=== PATIENT | female | born 1990 | race Caucasian/White ===

== ENCOUNTER → 2018-10-26 11:44 | Outpatient (CLI) | payer OTHER, SELFPAY ==
[2018-10-29 14:46] LABS: HPV Reflexed? NOT INDICATED
== END ==
PROVIDERS: Visit Provider Obstetrics & Gynecology
DX: Z12.4 Encounter for screening for malignant neoplasm of cervix (principal)
CPT/HCPCS: 87624; 88175; G0145

== ENCOUNTER → 2019-11-08 11:25 | Outpatient (CLI) | payer OTHER, SELFPAY ==
[2019-11-08 14:34] LABS: Progesterone Level 8.26 ng/mL (See Comment)
== END ==
PROVIDERS: Visit Provider Obstetrics & Gynecology
DX: E28.8 Other ovarian dysfunction (principal)
CPT/HCPCS: 36415; 84144

== ENCOUNTER → 2019-11-17 08:43 | Outpatient (CLI) | payer OTHER, SELFPAY ==
[2019-11-17 11:08] LABS: T3 Total - Triiodothyronine 1.24 ng/mL (0.6-1.81); Vitamin D,25 Hydroxy 47.2 ng/mL
[2019-11-17 11:16] LABS: Follicle Stimulating Hormone 5.7 mIU/mL; Luteinizing Hormone 9.1 mIU/mL; T4 Free Direct 0.94 ng/dL (0.76-1.46); Thyroid Stim Hormone (TSH) 6.79 uIU/mL (0.358-3.74)
[2019-11-21 07:39] LABS: 17-Hydroxyprogesterone 40 ng/dL (.)
[2019-11-25 14:56] LABS: Androstenedione 120 ng/dL (41-262); Sex Hormone-binding Globulin 58.3 nmol/L (24.6-122.0)
== END ==
PROVIDERS: Visit Provider Obstetrics & Gynecology
DX: E28.8 Other ovarian dysfunction (principal); Z13.89 Encounter for screening for other disorder
CPT/HCPCS: 36415; 82157; 82306; 82533; 82627; 82670; 83001; 83002; 83498; 84146; 84270; 84403; 84439; 84443; 84480; 84481; 82626

== ENCOUNTER → 2020-01-24 08:57 | Outpatient (CLI) | payer OTHER, SELFPAY ==
[2020-01-24 12:01] LABS: Free T3 2.7 pg/mL (2.18-3.98); Prolactin 28.7 ng/mL; T4 Free Direct 1.17 ng/dL (0.76-1.46); Thyroid Stim Hormone (TSH) 3.93 uIU/mL (0.358-3.74)
[2020-01-24 17:41] LABS: Progesterone Level 18.37 ng/mL (See Comment); T3 Total - Triiodothyronine 1.07 ng/mL (0.6-1.81)
[2020-01-25 15:47] LABS: Thyroglobulin Antibody 4.8 IU/mL (0.0-0.9); Thyroid Peroxidase AB 324 IU/mL (0-34)
[2020-01-28 17:36] LABS: hCG Titer Quant., Serum 13783 mIU/mL (1-3)
== END ==
PROVIDERS: Visit Provider Obstetrics & Gynecology
DX: Z13.89 Encounter for screening for other disorder (principal); E28.8 Other ovarian dysfunction
CPT/HCPCS: 36415; 84144; 84146; 84439; 84443; 84480; 84481; 84702; 86376; 86800

== ENCOUNTER → 2020-02-01 12:37 | Outpatient (CLI) | payer OTHER, SELFPAY ==
[2020-02-01 13:54] LABS: Absolute Lymphocyte Count 2.27 X10^3/uL (0.83-4.51); Absolute Neutrophil Count 6.8 X10^3/uL (2.0-7.7); Basophil# 0.03 X10^3/uL; Basophil% 0.3 % (0-1); Eosinophil# 0.08 X10^3/uL; Eosinophils% 0.8 % (0-5); Hematocrit 40.7 % (37-47); Hemoglobin 14.3 g/dL (12.0-15.0); Lymphocyte # 2.27 X10^3/ul (4.0); Lymphocyte % 22.6 % (19-41); Mean Corp Hgb Conc 35.1 g/dL (32-36); Mean Corpuscular Hgb 30.8 pg (27.0-32.0); Mean Corpuscular Volume 87.7 fL (81-99); Mean Platelet Vol. 10.3 fl (6.2-12.0); Monocyte# 0.85 X10^3/uL; Monocyte% 8.5 % (0-10); NRBC Flagged by Analyzer 0 % (0-5); Neutrophil # 6.79 X10^3/uL (2.7-7.7); Neutrophil % 67.5 % (47-70); Platelet Count 231 K/mm3 (150-450); RBC Distribution Width SD 38.5 fl (35.1-43.9); Red Blood Count 4.64 M/mm3 (4.2-5.4); White Blood Count 10.1 K/mm3 (4.4-11.0)
[2020-02-01 13:58] LABS: Color, Urine Yellow (Yellow); Glucose, Dipstick Normal (Normal); Ketone-Dipstick Negative (Negative); Leukocyte Esterase-Dipstick 500 /ul (Negative); Nitrite-Dipstick Negative (Negative); Occult Blood-Urine Negative /ul (Negative); Protein-Dipstick Negative (Negative); Specific Gravity, Urine 1.015 (1.002-1.030); Urine Bilirubin Dipstick Negative (Negative); Urine Clarity Clear (Clear); Urine Urobilinogen Normal (Normal); Urine pH 6.5 (5.0 - 8.0)
[2020-02-01 14:08] LABS: Amphetamine Urine VISTA NEGATIVE (<1000 ng/mL); Barbiturate Urine VISTA NEGATIVE (< 200 ng/mL); Benzodiazepine Urine VISTA NEGATIVE (< 200 ng/mL); Cocaine Urine VISTA NEGATIVE (< 300 ng/mL); Ecstacy Urine VISTA NEGATIVE (< 500 ng/mL); Methadone Urine VISTA NEGATIVE (< 300 ng/mL); PCP Urine VISTA NEGATIVE (< 25 ng/mL); THC Urine VISTA NEGATIVE (< 50 ng/mL); Vista UDS pH Range 6
[2020-02-01 15:33] LABS: HIV - WCH Non-Reactive (Nonreactive); Hepatitis B Surface Antigen Non-Reactive (Nonreactive); Hepatitis C Antibody Non-Reactive (Nonreactive); Rubella IgG Reactive (Nonreactive); Vitamin D,25 Hydroxy 39.3 ng/mL
[2020-02-03 02:11] LABS: Prenatal RPR NONREACTIVE (NONREACTIVE)
[2020-02-03 08:09] LABS: Chlamydia By Nucleic Acid AMP Negative (Negative)
[2020-02-03 10:56] LABS: Gonococcus By Nucleic Acid AMP Negative (Negative)
== END ==
PROVIDERS: Visit Provider Obstetrics & Gynecology
DX: Z34.81 Encounter for supervision of other normal pregnancy, first trimester (principal)
CPT/HCPCS: 36415; 80307; 81002; 82306; 85025; 86703; 86762; 86803; 87340; 87491; 87591

== ENCOUNTER → 2020-03-28 10:55 | Outpatient (CLI) | payer OTHER, SELFPAY ==
[2020-03-28 14:01] LABS: Free T3 2.7 pg/mL (2.18-3.98); T4 Free Direct 1.25 ng/dL (0.76-1.46); Thyroid Stim Hormone (TSH) 1.15 uIU/mL (0.358-3.74)
[2020-04-04 14:11] LABS: CF, Screen Comment: (.)
== END ==
PROVIDERS: Visit Provider Obstetrics & Gynecology
DX: Z34.82 Encounter for supervision of other normal pregnancy, second trimester (principal); E03.9 Hypothyroidism, unspecified
CPT/HCPCS: 36415; 81220; 84439; 84443; 84481

== ENCOUNTER → 2020-06-27 15:02 | Outpatient (CLI) | payer OTHER, SELFPAY ==
[2020-06-27 16:46] LABS: Hematocrit 37.9 % (37-47); Hemoglobin 12.7 g/dL (12.0-15.0); Mean Corp Hgb Conc 33.5 g/dL (32-36); Mean Corpuscular Hgb 31.1 pg (27.0-32.0); Mean Corpuscular Volume 92.9 fL (81-99); Mean Platelet Vol. 10.4 fl (6.2-12.0); Platelet Count 202 K/mm3 (150-450); RBC Distribution Width CV 13.4 % (11.6-14.6); RBC Distribution Width SD 45.8 fl (35.1-43.9); Red Blood Count 4.08 M/mm3 (4.2-5.4)
[2020-06-27 17:23] LABS: Glucose Challenge Gest 1H 50g 124 mg/dL (70-140); T4 Free Direct 0.85 ng/dL (0.76-1.46); Thyroid Stim Hormone (TSH) 1.07 uIU/mL (0.358-3.74)
== END ==
PROVIDERS: Visit Provider Obstetrics & Gynecology
DX: Z34.82 Encounter for supervision of other normal pregnancy, second trimester (principal)
CPT/HCPCS: 36415; 82950; 84439; 84443; 85027

== ENCOUNTER → 2020-08-01 11:08 | Outpatient (CLI) | payer OTHER, SELFPAY ==
[2020-08-01 16:12] LABS: T4 Free Direct 0.93 ng/dL (0.76-1.46)
== END ==
PROVIDERS: PCP Family Medicine; Visit Provider Student in an Organized Health Care Education/Training Program
DX: E03.9 Hypothyroidism, unspecified (principal)
CPT/HCPCS: 36415; 84439; 84443

== ENCOUNTER → 2020-08-15 09:56 | Outpatient (CLI) | payer OTHER, SELFPAY ==
[2020-08-15 10:46] LABS: Hematocrit 41.2 % (37-47); Hemoglobin 13.8 g/dL (12.0-15.0); Mean Corp Hgb Conc 33.5 g/dL (32-36); Mean Corpuscular Hgb 31.3 pg (27.0-32.0); Mean Corpuscular Volume 93.4 fL (81-99); Mean Platelet Vol. 10.2 fl (6.2-12.0); Platelet Count 208 K/mm3 (150-450); RBC Distribution Width CV 13.8 % (11.6-14.6); RBC Distribution Width SD 47.2 fl (35.1-43.9); Red Blood Count 4.41 M/mm3 (4.2-5.4)
[2020-08-15 10:59] LABS: Protein, Urine (Random) 14.1 mg/dL (<11.9); Protein:Creat Ratio 358 mg/g CRE (0-200)
[2020-08-15 11:13] LABS: ALB/GLOB Ratio 0.7 RATIO (0.9-2.4); AST(SGOT) 15 U/L (15-37); Alanine Aminotransfer ALT/SGPT 20 U/L (13-56); Albumin, Serum 2.5 g/dL (3.2-5.0); Alkaline Phosphatase 91 U/L (45-117); Anion Gap 6 (5-15); BUN 7 mg/dL (7-18); BUN/Creat Ratio 9.8 RATIO (10-20); Chloride 110 mmol/L (98-107); Creatinine, Serum 0.71 mg/dL (0.55-1.02); EST Glomerular Filtration Rate 103 mL/min (>60); Est Glom Filt Rate - Afr Amer 124 mL/min (>60); Globulin 3.8 g/dL (2.2-4.2); Glucose 81 mg/dL (74-106); Potassium 3.4 mmol/L (3.5-5.1); Protein, Total 6.3 g/dL (6.4-8.2); Sodium Level 139 mmol/L (136-145); Uric Acid 5.2 mg/dL (2.6-6.0)
== END ==
PROVIDERS: PCP Family Medicine; Visit Provider Obstetrics & Gynecology
DX: O13.3 Gestational [pregnancy-induced] hypertension without significant proteinuria, third trimester (principal); Z3A.00 Weeks of gestation of pregnancy not specified
CPT/HCPCS: 36415; 80053; 82570; 84156; 84550; 85027

== ENCOUNTER → 2020-08-25 12:01 | Outpatient (CLI) | payer OTHER, SELFPAY | PROVIDERS: PCP Family Medicine; Visit Provider Obstetrics & Gynecology | DX: Z36.85 Encounter for antenatal screening for Streptococcus B (principal) | CPT/HCPCS: 87081 ==

== ENCOUNTER → 2020-09-05 10:30 | Outpatient (CLI) | payer OTHER, SELFPAY ==
[2020-09-05 10:58] LABS: Hematocrit 42.9 % (37-47); Hemoglobin 14.8 g/dL (12.0-15.0); Mean Corp Hgb Conc 34.5 g/dL (32-36); Mean Corpuscular Hgb 31.4 pg (27.0-32.0); Mean Corpuscular Volume 91.1 fL (81-99); Mean Platelet Vol. 10.3 fl (6.2-12.0); Platelet Count 225 K/mm3 (150-450); RBC Distribution Width CV 13.3 % (11.6-14.6); RBC Distribution Width SD 44.2 fl (35.1-43.9); Red Blood Count 4.71 M/mm3 (4.2-5.4)
[2020-09-05 11:11] LABS: Protein, Urine (Random) 32.5 mg/dL (<11.9); Protein:Creat Ratio 349 mg/g CRE (0-200)
[2020-09-05 11:22] LABS: ALB/GLOB Ratio 0.6 RATIO (0.9-2.4); AST(SGOT) 18 U/L (15-37); Alanine Aminotransfer ALT/SGPT 21 U/L (13-56); Albumin, Serum 2.6 g/dL (3.2-5.0); Alkaline Phosphatase 123 U/L (45-117); Anion Gap 9 (5-15); BUN 11 mg/dL (7-18); BUN/Creat Ratio 13.6 RATIO (10-20); Calcium,Total 9.3 mg/dL (8.5-10.1); Chloride 109 mmol/L (98-107); Creatinine, Serum 0.81 mg/dL (0.55-1.02); EST Glomerular Filtration Rate 88 mL/min (>60); Est Glom Filt Rate - Afr Amer 107 mL/min (>60); Globulin 4.3 g/dL (2.2-4.2); Glucose 93 mg/dL (74-106); LDH 180 U/L (84-246); Potassium 3.7 mmol/L (3.5-5.1); Protein, Total 6.9 g/dL (6.4-8.2); Sodium Level 139 mmol/L (136-145); Uric Acid 5.9 mg/dL (2.6-6.0)
== END ==
PROVIDERS: PCP Family Medicine; Visit Provider Obstetrics & Gynecology
DX: O13.9 Gestational [pregnancy-induced] hypertension without significant proteinuria, unspecified trimester (principal); Z3A.00 Weeks of gestation of pregnancy not specified
CPT/HCPCS: 36415; 80053; 82570; 83615; 84156; 84550; 85027

== ENCOUNTER 2020-09-05 19:29 | Inpatient (IN) | payer OTHER, SELFPAY ==
[2020-09-05 19:36] VITALS: BMI 34.2
[2020-09-05 19:47] VITALS: BP 130/82; PULSE 86; TEMP 37; O2SAT 99
[2020-09-05] MEDS: Lactated Ringers 1,000 ML 50 ML IV (20:40)
[2020-09-05 20:51] LABS: Absolute Lymphocyte Count 2.08 X10^3/uL (0.83-4.51); Absolute Neutrophil Count 9.5 X10^3/uL (2.0-7.7); Basophil# 0.03 X10^3/uL; Basophil% 0.2 % (0-1); Eosinophil# 0.07 X10^3/uL; Eosinophils% 0.5 % (0-5); Hematocrit 42.4 % (37-47); Hemoglobin 14.4 g/dL (12.0-15.0); Lymphocyte # 2.08 X10^3/ul (0.83-4.51); Mean Corpuscular Hgb 31.3 pg (27.0-32.0); Mean Corpuscular Volume 92.2 fL (81-99); Mean Platelet Vol. 10.4 fl (6.2-12.0); Monocyte# 1.21 X10^3/uL; Monocyte% 9.3 % (0-10); NRBC Flagged by Analyzer 0 % (0-5); Neutrophil # 9.54 X10^3/uL (2.7-7.7); Neutrophil % 73.5 % (47-70); Platelet Count 250 K/mm3 (150-450); RBC Distribution Width CV 13.2 % (11.6-14.6); RBC Distribution Width SD 44.6 fl (35.1-43.9)
[2020-09-05] MEDS: miSOPROStol 25 MCG TABLET PO (21:00)
[2020-09-05 21:22] VITALS: BP 118/58; PULSE 80; TEMP 37; O2SAT 99
[2020-09-05 22:41] VITALS: BP 132/59; PULSE 91; TEMP 37.3; O2SAT 98
[2020-09-06] VITALS (74 sets, daily range): BP systolic 92–145; BP diastolic 43–94; PULSE 69–126; TEMP 36.6–38.3; O2SAT 92–100
[2020-09-06] MEDS: miSOPROStol 50 MCG TABLET PO (01:08)
[2020-09-06] MEDS: Lactated Ringers 1,000 ML 100 ML IV (04:28)
--- NOTE | 2020-09-06 06:26 | PN.OBGYN_ITS ---
Subjective Subjective Reports mild contractions. No headache or vision changes. Objective Data Objective Data Vital Signs: Vital Signs Temp Pulse BP Pulse Ox 97.9 F 69 113/55 L 98 09/06/20 05:25 09/06/20 05:26 09/06/20 05:26 09/06/20 05:25 Weight: 87.713 kg Body Mass Index (BMI) 34.2 Intake & Output: Intake and Output for Last 24 Hours 09/04/20 09/05/20 09/06/20 23:59 23:59 23:59 Intake Total 1553.34 / 1553.34 Output Total 50 / 50 250 / 250 Balance -50 / -50 1303.34 / 1303.34 Lab / Micro Data Result Diagrams: 09/05/20 20:40 Labs: Laboratory Results - last 24 hr 09/05/20 09/05/20 20:40 20:40 WBC 13.0 H RBC 4.60 Hgb 14.4 Hct 42.4 MCV 92.2 MCH 31.3 MCHC 34.0 RDW Std Deviation 44.6 H RDW Coeff of Jessie 13.2 Plt Count 250 MPV 10.4 Immature Gran % (Auto) 0.500 Neut % (Auto) 73.5 H Lymph % (Auto) 16.0 L [place] % (Auto) 9.3 Eos % (Auto) 0.5 Baso % (Auto) 0.2 Absolute Neuts (auto) 9.5 H Absolute Lymphs (auto) 2.08 Nucleated RBC % 0 Blood Type A POSITIVE Antibody Screen NEGATIVE Micro: Microbiology 09/05/20 20:00 Mucosa - Nose SARS-CoV-2 Antigen (Rapid) - Final Physical Exam Const alert, oriented x3 and no apparent distress Manual OB Exam: dilated 1.5\60\-3\soft\midposition NST FHR Rate Baby A Baseline: 130 Variability:: Moderate Accelerations:: 15 x 15 Decelerations:: None NST Reactive:: Yes FHR Category:: Category I Uterine Activity:: 07/08 Assessment & Plan (1) 37 weeks gestation of : (2) Preeclampsia: COMMENT: w/o severe features PLAN: Nunez catheter placed with 30 cc NS Category 1 heart rate tracing Maternal and status is reassuring
[2020-09-06] MEDS: 0.9% Normal Saline Single 100 ML IV.SOLN. INTRA-UTER (06:27)
[2020-09-06] MEDS: Lactated Ringers 500 ML 999 ML IV ×3 (07:15→21:17)
[2020-09-06] MEDS: fentaNYL-bupivacaine (epidural) 100 ML BAG EPIDURAL ×4 (08:14→21:54)
[2020-09-06] MEDS: Oxytocin 30 units/NS 500 ml 30 UNITS/500 ML IV.SOLN IV (08:28)
[2020-09-06] MEDS: Ondansetron 4 MG/2 ML Vial IV ×2 (10:10→16:42)
[2020-09-06] MEDS: Lactated Ringers 1,000 ML 200 ML IV ×3 (12:20→22:59)
[2020-09-06] MEDS: proCHLORPERazine 10 MG/2 ML Vial IV (20:24)
[2020-09-06] MEDS: DiphenhydrAMINE 50 MG/ML Syringe 25 MG IV (21:29)
[2020-09-07] VITALS (31 sets, daily range): BP systolic 95–123; BP diastolic 44–64; PULSE 66–100; RESP 14–22; TEMP 36.3–38.8; O2SAT 94–100
[2020-09-07] MEDS: Acetaminophen 650 MG/20 ML UDC PO (02:01)
[2020-09-07] MEDS: Sodium Citrate/Citric Acid 30 ML UDC PO (02:29)
[2020-09-07] MEDS: Cefazolin 2 GM in 0.9% Normal Saline 100 ML IV (02:32)
--- NOTE | 2020-09-07 02:43 | PCM.PN.OB ---
Subjective Subjective Patient has progressed to approximately 6 cm dilation with 80% effacement still -1 station. She has remained at this station dilation for at least 8 hours. heart tones have been alternating between category 1 category 2 with Pitocin up to 14 units. Now with fever up to approximately 101.8 ?F. Given this, along with no prospect of delivering soon, will proceed with primary section for failure to progress, chorioamnionitis, and increasing stress. I have discussed a section with the patient and her who desire that we proceed. We discussed the risks benefits and alternatives including the possibility of bleeding, infection, and injury to surrounding structures such as bowel and bladder. All questions were answered. Objective Data Objective Data Vital Signs: Vital Signs Temp Pulse Resp BP Pulse Ox 99.7 F H 95 22 H 105/52 L 99 09/07/20 02:25 09/07/20 02:25 09/07/20 02:25 09/07/20 02:25 09/07/20 02:25 Oxygen Delivery Method Room Air Weight: 193 lb 6 oz Body Mass Index (BMI) 34.2 Intake & Output: Intake and Output for Last 24 Hours 09/05/20 09/06/20 09/07/20 23:59 23:59 23:59 Intake Total 5966.82 / 5979.62 45.47 / 45.47 Output Total 50 / 50 2200 / 2200 650 / 650 Balance -50 / -50 3766.82 / 3779.62 -604.53 / -604.53 Lab / Micro Data Result Diagrams: 09/05/20 20:40 Micro: Microbiology 09/05/20 20:00 Mucosa - Nose SARS-CoV-2 Antigen (Rapid) - Final
--- NOTE | 2020-09-07 02:46 | EX.PCM.OBRPT ---
Maternal Data Information SLICK Calculator Estimated Delivery Date Method Current WG Current Estimate 09/22/20 LMP (Certain) 37w 6d Details Operative Information Date of Procedure: 09/07/20 Pre-Operative Diagnosis: -Induced Hypertension, Failure to Progress, Chorioamnionitis, Increasing Stress Post-Operative Diagnosis: -Induced Hypertension, Failure to Progress, Chorioamnionitis, Increasing Stress, Cephalopelvic Disproportion, Posterior Presentation Classification: TONE Procedure Type: low transverse long wall shear operator #1: Sujatha Orozco Type of Anesthesia: Spinal (With Duramorph) Anesthesiologist: Bernardo Varner Antibiotic Given: Ancef 2 grams IV x1 and Zithromax 500 mg/5 mL X1 Estimated Blood Loss: 750 cc Fluids Replaced: Crystalloid Findings Description of Procedure: Surgeon: Jose Alejandro Chavarria MD, FACOG Indication: This is a 29-year-old who presented to labor and delivery for induction approximately 2 days ago for -induced hypertension. She originally received Cytotec followed by a Nunez balloon catheter and cervix progressed to approximately 6 cm dilation with 80% effacement still -1 station. She has remained at this station dilation for at least 8 hours. heart tones have been alternating between category 1 category 2 with Pitocin up to 14 units. Now with fever up to approximately 101.8 ?F. Given this, along with no prospect of delivering soon, will proceed with primary section for failure to progress, chorioamnionitis, and increasing stress. care has otherwise been uneventful. The patient has been counseled regarding the risk and indications of this procedure including the possibility of bleeding infection and injury to surrounding structures such as bowel bladder. All questions were answered. Procedure: Patient was taken to the operating room where after spinal anesthesia was placed, the patient was prepped and draped in usual sterile fashion and a Nunez catheter was placed. The abdomen was entered through a Pfannenstiel incision and peritoneum was entered bluntly. After developing a bladder flap on the lower uterine segment a low transverse incision was made on the uterus and head was easily delivered onto the operative field the nose mouth and oropharynx were bulb suctioned. Subsequently a viable male infant was born with Apgars of 8/9 weighing 9 pounds 4 ounces in an occiput posterior presentation. The infant was noted to cry move all extremities vigorously on the operative field. The umbilical cord was doubly clamped and ligated and handed to the nursery personnel including Dr. Viveros who were present for the delivery. Placenta was delivered and noted to be 3 vessels and normal. Uterus was exteriorized and remaining placental tissue was removed. The uterus was then closed in 2 layers first with running locked 0 Vicryl suture followed by a second imbricating layer with 0 Vicryl suture. 0 Vicryl suture was then used in a horizontal mattress interrupted fashion to affect final hemostasis of the uterine incision line. Normal fallopian tubes and ovaries were visualized and the uterus was returned to the pelvis. Hemostasis was noted and rectus abdominis muscles were reapproximated in the midline with interrupted Number 0 Vicryl suture in a horizontal mattress fashion. Fascia was closed with running Number 1 PDS Strata fix suture. Subcutaneous tissue was irrigated with copious amouts of saline solution and then closed with running 3-0 Vicryl suture. Skin was closed with 4-0 monocryl suture in a running subcuticular fashion. Steri strips and a Mepilex dressing were placed across the incision. The patient tolerated the procedure well and was taken to the recovery room in satisfactory condition. Sponge, needle, and instrument counts were all reportedly correct. EBL was 500 cc. Ancef 2 gms IV and azithromycin 500 mg IV were given prior to the procedure. Presentation: Positive for Vertex (Occiput posterior) Amniotic Membrane Rupture Type: Spontaneous Amniotic Fluid Description: Clear Placenta Disposition: [facility] Specimen(s) Sent to Pathology: None Cord Vessel Description: 3 Vessels Cord Entanglement: None Infant A Gender: Male (1 minute): 8 (5 minute): 9 Complications Risks of Surgery Discussed w/Patient: Bleeding, Infection and Injury to surrounding structure(s) including bowel and bladder Complications: None Admit VTE Documentation VTE Present on Admission: Yes VTE Mechan Device Prophylaxis: SCD's VTE Pharm Prophylaxis Ordered: Yes
--- NOTE | 2020-09-07 02:55 | PCM.DC ---
Discharge Instructions Diet Discharge Diet: No restrictions Activity Discharge Activity: May Drive (if not taking narcotic pain medication), May Shower and May Take a Tub Bath May resume sexual activity in: 4-6 weeks Lifting Restrictions: 20-25 pounds for 6 weeks Dressing / Incision Call your doctor if your incision/area has: Continuous Slow Oozing, Sudden Increased Bleeding, Increased Pain/ Swelling, Increased Redness and Foul Smelling Discharge Call your doctor if you observe: Fever of 101 or Higher, Inability to urinate, Inability to have a bowel movement and Using more than 1 pad per hour Remove Dressing in: 1 week (remove outer dressing; leave steri strips on until they fall off--ok to shower or bath over dressings and pat dry) Follow Up Care Please Follow Up With: Radha Chakraborty MD When: Call [phone] for appointment to be seen in 2 weeks. Test Results: Test results from this visit will be discussed in further detail at your follow-up appointment, if applicable. Discharge Plan Admission Admit Date/Time: 09/05/20 19:29 Primary Reason for Your Visit: Delivery of Otis Attending Provider: Jose Alejandro Chavarria Primary Care Provider: Joseline Lopez Discharge Orders/Prescriptions Prescriptions: New docusate sodium 100 mg tablet 100 mg PO BID PRN (Reason: constipation) Qty: 60 RF: 1 oxycodone 5 mg capsule 5 mg PO Q6H PRN (Reason: pain) 7 Days Qty: 14 RF: 0 Continued PNV #[id number] acid-dha 35 mg iron-5 mg iron-1 mg Capsule 2 cap PO DAILY PRN RF: 0 thyroid 65 mg Tablet 75 mg PO DAILY RF: 0 Referrals / Follow Up: Joseline Lopez DO [Primary Care Provider] - Disposition Disposition (needs filled in before D/C Order can be placed): Home, self care
[2020-09-07] MEDS: Oxytocin 30 units/NS 500 ml 30 UNITS/500 ML IV.SOLN 167 UNITS IV (04:14)
[2020-09-07] MEDS: Ketorolac 30 MG/ML Syringe IV ×4 (04:48→22:53)
[2020-09-07] MEDS: Levothyroxine 75 MCG Tablet PO (06:37)
[2020-09-07] MEDS: Lactated Ringers 1,000 ML 100 ML IV ×2 (07:16→16:35)
[2020-09-07] MEDS: Acetaminophen 650 MG/20 ML UDC 1000 MG PO ×3 (08:11→22:51)
[2020-09-07] MEDS: Cefazolin 1 GM/50 ML BAG IV ×2 (10:41→18:15)
[2020-09-07] MEDS: 0.9% Saline Lock 10 ML Syringe IV (22:53)
[2020-09-08 01:17] VITALS: RESP 18; O2SAT 95
[2020-09-08 03:17] VITALS: O2SAT 95
[2020-09-08 04:05] VITALS: BP 101/49; PULSE 85; RESP 16; TEMP 36.4
[2020-09-08] MEDS: Acetaminophen 650 MG/20 ML UDC 1000 MG PO ×4 (04:56→23:53)
[2020-09-08] MEDS: Ketorolac 30 MG/ML Syringe IV (04:57)
[2020-09-08] MEDS: Levothyroxine 75 MCG Tablet PO (04:57)
[2020-09-08] MEDS: 0.9% Saline Lock 10 ML Syringe IV (04:57)
[2020-09-08 06:09] LABS: Hematocrit 30.2 % (37-47); Mean Corp Hgb Conc 33.1 g/dL (32-36); Mean Corpuscular Hgb 31.2 pg (27.0-32.0); Mean Corpuscular Volume 94.1 fL (81-99); Mean Platelet Vol. 10.2 fl (6.2-12.0); Platelet Count 179 K/mm3 (150-450); RBC Distribution Width CV 13.6 % (11.6-14.6); RBC Distribution Width SD 47.6 fl (35.1-43.9); Red Blood Count 3.21 M/mm3 (4.2-5.4); White Blood Count 18.8 K/mm3 (4.4-11.0)
[2020-09-08 08:00] VITALS: BP 105/50; PULSE 80; RESP 16; TEMP 36.1
--- NOTE | 2020-09-08 08:42 | PCM.PN.OB ---
Subjective Subjective Denies fevers, chills, vomiting, headache, vision changes, chest pain, shortness of breath. She reports some nausea due to decreased p.o. intake as she does not like hospital food. Denies heavy lochia. She is breast-feeding. Objective Data Objective Data Vital Signs: Vital Signs Temp Pulse Resp BP Pulse Ox 97.6 F L 85 16 101/49 L 95 09/08/20 04:05 09/08/20 04:05 09/08/20 04:05 09/08/20 04:05 09/08/20 03:17 Oxygen Delivery Method Room Air Weight: 87.713 kg Body Mass Index (BMI) 34.2 Intake & Output: Intake and Output for Last 24 Hours 09/06/20 09/07/20 09/08/20 23:59 23:59 23:59 Intake Total 5966.82 / 5979.62 2618.81 / 2618.81 833.33 / 833.33 Output Total 2200 / 2200 1390 / 1390 Balance 3766.82 / 3779.62 1228.81 / 1228.81 833.33 / 833.33 Lab / Micro Data Result Diagrams: 09/08/20 06:00 Labs: Laboratory Results - last 24 hr 09/08/20 06:00 WBC 18.8 H RBC 3.21 L Hgb 10.0 L Hct 30.2 L MCV 94.1 MCH 31.2 MCHC 33.1 RDW Std Deviation 47.6 H RDW Coeff of Jessie 13.6 Plt Count 179 MPV 10.2 Micro: Microbiology 09/05/20 20:00 Mucosa - Nose SARS-CoV-2 Antigen (Rapid) - Final Physical Exam Const alert, oriented x3 and no apparent distress Resp normal respiratory effort, normal air movement and clear to auscultation bilaterally Cardio regular rate, regular rhythm, S1 normal heart sound and S2 normal heart sound GI normal to inspection, nondistended, normoactive bowel sounds, soft to palpation, non-tender and non-distended GI Narrative: incisional dressing c/d/i Manual OB Exam: other lochia scant Uterus Palpation: uterus fundus firm Extremity no calf tenderness Extremity Narrative: +1 b/l pedal edema Assessment & Plan (1) Delivery by section: PLAN: A positive, rpr neg, HBsAg neg, Rub immune, HIV nr No si/sx infection Routine postop care
[2020-09-08 14:31] VITALS: BP 111/71; PULSE 88; RESP 16; TEMP 36.8; O2SAT 97
[2020-09-08 21:10] VITALS: BP 124/58; PULSE 79; RESP 18; TEMP 37.3; O2SAT 98
[2020-09-09 02:15] VITALS: BP 114/58; PULSE 86; RESP 16; TEMP 36.4; O2SAT 98
[2020-09-09] MEDS: Levothyroxine 75 MCG Tablet PO (06:33)
[2020-09-09] MEDS: Acetaminophen 650 MG/20 ML UDC 1000 MG PO (06:33)
[2020-09-09 08:15] VITALS: BP 119/65; PULSE 75; RESP 16; TEMP 36.1; O2SAT 97
--- NOTE | 2020-09-09 08:33 | PN.OBGYN_ITS ---
Subjective Subjective Patient without complaints. Tolerating diet well. Positive flatus. Minimal vaginal bleeding reported. Pain well controlled with Tylenol. Wants to go home today. Objective Data Objective Data Vital Signs: Vital Signs Temp Pulse Resp BP Pulse Ox 97.6 F L 86 16 114/58 L 98 09/09/20 02:15 09/09/20 02:15 09/09/20 02:15 09/09/20 02:15 09/09/20 02:15 Oxygen Delivery Method Room Air Weight: 193 lb 6 oz Body Mass Index (BMI) 34.2 Intake & Output: Intake and Output for Last 24 Hours 09/07/20 09/08/20 09/09/20 23:59 23:59 23:59 Intake Total 2618.81 / 2618.81 833.33 / 833.33 Output Total 1390 / 1390 Balance 1228.81 / 1228.81 833.33 / 833.33 Lab / Micro Data Result Diagrams: 09/08/20 06:00 Micro: Microbiology 09/05/20 20:00 Mucosa - Nose SARS-CoV-2 Antigen (Rapid) - Final Assessment & Plan (1) Delivery by section: PLAN: Doing well postoperative day #2 status post primary section for failure to progress and CPD. Will discharge to home with routine instr uctions.
--- NOTE | 2020-09-09 08:34 | PCM.DC.SUM ---
Providers Date of Admission: 09/05/20 Primary Care Physician: Dr. Joseline Lopez DO Reason For Visit: PRIMARY C SECTION Diagnosis Discharge Diagnosis (1) Delivery by section: Status: Acute Medications at Discharge Home Medications PNV #[id number] acid-dha 2 cap PO DAILY PRN 09/05/20 thyroid 75 mg PO DAILY 09/05/20 docusate sodium 100 mg PO BID PRN #60 tab 09/07/20 oxycodone 5 mg PO Q6H PRN 7 Days #14 cap 09/07/20 Hospital Course Summary of Care Provided Hospital Course: Patient was admitted for induction for -induced hypertension. She was admitted originally given Cytotec followed by Nunez catheter bulb. She then progressed to approximately 6 cm and despite adequate contractions noted an intrauterine pressure catheter failed to progress. She was also noted to have a fever up to 101.8 and heart tones were category 1 and intermittently category 2. Given this and no prospect of delivering soon a section was done without complications at which time a viable male with Apgars of 8/9 weighing 9 pounds 4 ounces was born from an occiput posterior presentation. Postoperatively the patient did well demonstrating a stable hemoglobin on postoperative day #1 as well as bowel function. It was felt that she was ready for discharge on postoperative day #2. Weight / BMI Weight Weight: 193 lb 6 oz Body Mass Index (BMI) 34.2 ABG / Lab / Microbiology Data Result Diagrams: 09/08/20 06:00 Microbiology: Microbiology 09/05/20 20:00 Mucosa - Nose SARS-CoV-2 Antigen (Rapid) - Final D/C Instructions Discharge Diet: No restrictions May resume sexual activity in: 4-6 weeks Call your doctor if your incision/area has: Continuous Slow Oozing, Sudden Increased Bleeding, Increased Pain/ Swelling, Increased Redness and Foul Smelling Discharge Call your doctor if you observe: Fever of 101 or Higher, Inability to urinate, Inability to have a bowel movement and Using more than 1 pad per hour Please Follow Up With: Radha Chakraborty MD When: Call [phone] for appointment to be seen in 2 weeks. Meaningful Use Info Meaningful Use Diagnoses (Choose all that apply): None applicable Discharge Plan Admission Admit Date/Time: 09/05/20 19:29 Primary Reason for Your Visit: Delivery of Otis Attending Provider: Jose Alejandro Chavarria Primary Care Provider: Joseline Lopez Discharge Orders/Prescriptions Prescriptions: New docusate sodium 100 mg tablet 100 mg PO BID PRN (Reason: constipation) Qty: 60 RF: 1 oxycodone 5 mg capsule 5 mg PO Q6H PRN (Reason: pain) 7 Days Qty: 14 RF: 0 Continued PNV #[id number] acid-dha 35 mg iron-5 mg iron-1 mg Capsule 2 cap PO DAILY PRN RF: 0 thyroid 65 mg Tablet 75 mg PO DAILY RF: 0 Referrals / Follow Up: Joseline Lopez DO [Primary Care Provider] - Disposition Disposition (needs filled in before D/C Order can be placed): Home, self care
== END 2020-09-09 12:20 | disposition home or self-care (01) | DRG 786 ==
PROVIDERS: Obstetrics & Gynecology; Admitting Provider Obstetrics & Gynecology; PCP Family Medicine; Referring Provider Obstetrics & Gynecology; Visit Provider Obstetrics & Gynecology
DX: O65.4 Obstructed labor due to fetopelvic disproportion, unspecified (principal); O41.1230 Chorioamnionitis, third trimester, not applicable or unspecified; O77.9 Labor and delivery complicated by fetal stress, unspecified; Z3A.37 37 weeks gestation of pregnancy; Z37.0 Single live birth; O62.2 Other uterine inertia; O14.04 Mild to moderate pre-eclampsia, complicating childbirth; O99.284 Endocrine, nutritional and metabolic diseases complicating childbirth; E03.8 Other specified hypothyroidism; Z79.899 Other long term (current) drug therapy
CPT/HCPCS: 59025; 59050; 85025; 85027; 86850; 86900; 86901; 87426; 99218; J7120; A4216; G0378; J2405